=== PATIENT | male | born 1955 | race Caucasian/White ===

== ENCOUNTER → 2016-10-18 | Outpatient (CLI) | payer BC ==
[~2016-10-18] MED LIST: NTRC PO; WARF5TAB7 PO
--- NOTE | 2016-10-18 10:58 | DIAGNOSTIC IMAGING REPORT ---
CT LUNG SCREENING, LOW DOSE WITH COMPUTER-AIDED DETECTION (CAD) CLINICAL HISTORY: CURRENT SMOKER, SCREENING COMPARISON STUDY: Chest x-ray 03/23/2014. CT DOSE: 78.24 mGycm TECHNIQUE: Low-dose helical CT was acquired without intravenous contrast from lung apices to bases and reconstructed at 2.5 mm every 2 mm. CAD was utilized for this study. A dose lowering technique was utilized adhering to the principles of ALARA. FINDINGS: The central airways are patent. No pleural effusions. No pneumothorax. Bibasilar linear densities consistent with subsegmental atelectasis. Punctate calcified granuloma along the left major fissure on image 44 of 161. Mild apical predominant emphysema. No suspicious lytic or blastic osseous lesions. No mediastinal or hilar lymphadenopathy. Normal caliber thoracic aorta. The heart is normal in size. The visualized unenhanced liver, spleen, and adrenal glands appear unremarkable. There is a subcentimeter subpleural nodule within the base of the left lower lobe on image 117. Details of this nodule are described below. Nodule 1 Category: 2 Nodule 1 Status: Baseline Nodule 1 Description: Solid Nodule 1 Lesion ID: 1 Nodule 1 Slice Number: 45 Nodule 1 Volume (mm3): 71 Nodule 1 [facility] mm: 5.5 Nodule 1 [facility] mm: 3.4 IMPRESSION: A single subcentimeter nodule within the base of the left lower lobe with recommendations detailed below. CAD FINDINGS: Overall Lung RADS Category: 2 Lung RADS Management Recommendation: Lung-RADS 2: Continue annual screening in 12 months. Lung RADS Follow Up Date: 2017-10-18 Lung RADS Nodule ID: 1 Electronically signed by: Benny Kearney M.D. 10/18/2016 10:56 AM Dictated Date/Time: 10/18/2016 10:50 AM
== END | disposition home or self-care (01) ==
LOC: C.CTS 10:25
PROVIDERS: ATTEND Family Medicine
DX: Z12.2 Encounter for screening for malignant neoplasm of respiratory organs (principal); R91.1 Solitary pulmonary nodule; F17.210 Nicotine dependence, cigarettes, uncomplicated

== ENCOUNTER → 2017-09-30 | Outpatient (CLI) | payer OTHER ==
[~2017-09-30] MED LIST changes: -NTRC PO
--- NOTE | 2017-09-30 11:17 | DIAGNOSTIC IMAGING REPORT ---
CT OF THE CHEST WITHOUT IV CONTRAST CLINICAL HISTORY: Lung nodule. Significant smoking history. COMPARISON STUDY: Chest CT October 18, 2016. TECHNIQUE: Axial images of the chest were obtained without IV contrast. Images were reviewed in the axial, sagittal, and coronal planes. IV contrast was not administered for this examination. A dose lowering technique was utilized adhering to the principles of ALARA. FINDINGS: No enlarged axillary, mediastinal or hilar lymph nodes are present. The size of the heart is normal. There is no pericardial effusion. Central airways are patent. Bilateral lower lobe, lingular and right middle lobe opacities reflect atelectasis. There is no consolidation to suggest pneumonia. A 5 mm left lower lobe nodule shown on image 235 of [address] of October 18, 2016. A 5 mm left upper lobe nodule shown image 90 is also unchanged. There are no new nodules. Bony thorax is unremarkable as is the upper abdomen. IMPRESSION: 1. No change in two low suspicion pulmonary nodules since CT of October 18, 2016. These are likely benign however a follow-up chest CT in one year to ensure stability is recommended. 2. No acute intrathoracic findings. Electronically signed by: Theron Patel M.D. 09/30/2017 11:15 AM Dictated Date/Time: 09/30/2017 11:10 AM
== END | disposition home or self-care (01) ==
LOC: C.CTS 10:03
PROVIDERS: ATTEND Family Medicine
DX: R91.8 Other nonspecific abnormal finding of lung field (principal)